=== PATIENT | female | born 1960 | race African-American/Black ===

== ENCOUNTER 2018-06-08 09:43 | Emergency (ER) | payer OTHER, SELFPAY ==
[2018-06-08 09:58] VITALS: BP 123/66
[2018-06-08] MEDS ORDERED: PROVENTIL IH ONE (10:17)
[2018-06-08] MEDS ORDERED: ATROVENT IH ONE (10:17)
--- NOTE | 2018-06-08 11:05 | XRay Report ---
FINAL REPORT EXAM: XR CHEST ROUTINE 2V HISTORY: shortness of breath TECHNIQUE: Frontal and lateral views of the chest. PRIORS: None currently available. FINDINGS: Cardiac silhouette is within normal limits. There is no effusion. There is no pneumothorax. There is no consolidation. There are no suspicious osseous lesions. IMPRESSION: No acute cardiopulmonary findings.
--- NOTE | 2018-06-08 11:46 | Emergency Department Report ---
ED Shortness of Breath HPI - General Chief Complaint: Dyspnea/Respdistress Stated Complaint: VINAYAK Time Seen by Provider: 06/08/18 10:12 Source: patient Mode of arrival: Ambulatory Limitations: No Limitations - History of Present Illness Initial Comments: Patient is a 57-year-old female who is presenting with shortness of breath. Patient has multiple medical problems which include fibromyalgia occasional vertigo she states she has depression and rheumatoid arthritis and migraines. Patient states she's had shortness of breath for approximately 9 days with a mild cough. Patient states cough is productive of white sputum. She denies any fevers chills nausea vomiting at this time. Patient states is no chest pain. Patient states she has to yawn to take a full deep breath. There is no pain with inspiration. - Related Data Home Medications Medication Instructions Recorded Confirmed Last Taken Cholecalciferol (Vitamin D3) 50,000 unit PO QWEEK 02/27/18 02/27/18 Unknown [Decara 50,000 unit] Hydroxychloroquine [Plaquenil] 200 mg PO DAILY 02/27/18 02/27/18 Unknown Ibuprofen [Ibu] 800 mg PO BID 02/27/18 02/27/18 Unknown Multivitamin/Iron/Folic Acid 1 each PO DAILY 02/27/18 02/27/18 Unknown [Centrum Adults Tablet] Potassium Chloride [Klor-Con 10] 10 meq PO DAILY 02/27/18 02/27/18 Unknown Topiramate [Topamax] 25 mg PO DAILY 02/27/18 02/27/18 Unknown amLODIPine [Norvasc] 5 mg PO DAILY 02/27/18 02/27/18 Unknown Previous Rx's Medication Instructions Recorded Last Taken Type Meclizine [Antivert] 25 mg PO TID PRN #20 tablet 02/27/18 Unknown Rx ALBUTEROL Inhaler (OR & NICU) 2 puff IH QID PRN #1 inhalation 06/08/18 Unknown Rx [ProAir HFA Inhaler] hydrOXYzine PAMOATE [Vistaril] 25 mg PO BID #15 capsule 06/08/18 Unknown Rx predniSONE [Deltasone] 10 mg PO QDAY #5 tab 06/08/18 Unknown Rx Allergies Allergy/AdvReac Type Severity Reaction Status Date / Time Penicillins Allergy Unknown Verified 06/08/18 09:57 ED Review of Systems ROS: Stated complaint: VINAYAK Other details as noted in HPI Comment: All other systems reviewed and negative ED Past Medical Hx - Past Medical History Previous Medical History?: Yes Hx Hypertension: Yes Hx Diabetes: Yes Hx Arthritis: Yes Hx Headaches / Migraines: Yes Additional medical history: depression, fibroimyalgia, HTN, bursistis, HLD, vertigo, hypokalemia - Surgical History Past Surgical History?: Yes Additional Surgical History: urethrea surgery - Social History Smoking Status: Never Smoker - Medications Home Medications: Home Medications Medication Instructions Recorded Confirmed Last Taken Type Cholecalciferol (Vitamin D3) 50,000 unit PO QWEEK 02/27/18 02/27/18 Unknown History [Decara 50,000 unit] Hydroxychloroquine [Plaquenil] 200 mg PO DAILY 02/27/18 02/27/18 Unknown History Ibuprofen [Ibu] 800 mg PO BID 02/27/18 02/27/18 Unknown History Meclizine [Antivert] 25 mg PO TID PRN #20 tablet 02/27/18 Unknown Rx Multivitamin/Iron/Folic Acid 1 each PO DAILY 02/27/18 02/27/18 Unknown History [Centrum Adults Tablet] Potassium Chloride [Klor-Con 10] 10 meq PO DAILY 02/27/18 02/27/18 Unknown History Topiramate [Topamax] 25 mg PO DAILY 02/27/18 02/27/18 Unknown History amLODIPine [Norvasc] 5 mg PO DAILY 02/27/18 02/27/18 Unknown History ALBUTEROL Inhaler (OR & NICU) 2 puff IH QID PRN #1 inhalation 06/08/18 Unknown Rx [ProAir HFA Inhaler] hydrOXYzine PAMOATE [Vistaril] 25 mg PO BID #15 capsule 06/08/18 Unknown Rx predniSONE [Deltasone] 10 mg PO QDAY #5 tab 06/08/18 Unknown Rx ED Physical Exam - General Limitations: No Limitations General appearance: alert, in no apparent distress - Head Head exam: Present: atraumatic, normocephalic - Eye Eye exam: Present: normal appearance - ENT ENT exam: Present: mucous membranes moist - Neck Neck exam: Present: normal inspection - Respiratory Respiratory exam: Present: normal lung sounds bilaterally, prolonged expiratory. Absent: respiratory distress, wheezes, rales, rhonchi - Cardiovascular Cardiovascular Exam: Present: regular rate, normal rhythm. Absent: systolic murmur, diastolic murmur, rubs, gallop - GI/Abdominal GI/Abdominal exam: Present: soft, normal bowel sounds. Absent: distended, tenderness, guarding, rebound, rigid - Extremities Exam Extremities exam: Present: normal inspection - Back Exam Back exam: Present: normal inspection - Neurological Exam Neurological exam: Present: alert, oriented X3 - Psychiatric Psychiatric exam: Present: normal affect, normal mood - Skin Skin exam: Present: warm, dry, intact, normal color. Absent: rash ED Course Vital Signs 06/08/18 06/08/18 06/08/18 09:53 10:25 10:52 Temperature 98.8 F Pulse Rate 83 Pulse Rate [ 88 90 Anterior Bilateral] Respiratory 20 Rate Respiratory 18 18 Rate [Anterior Bilateral] Blood Pressure 123/66 [Right] O2 Sat by Pulse 100 Oximetry ED Medical Decision Making - Radiology Data CXR WNL - Medical Decision Making Patient was given treatment for her prolonged expiratory phase which did improve after treatment. Patient continuing to complain of shortness of breath however her O2 sat is 100% lungs are clear. The patient likely with mild acute bronchitis. Patient also states she would like something for anxiety. I believe sciatic component is definitely a factor in the patient's symptoms today. Patient requesting a cardiac stress test because she is worried about her heart. Again patient is chest pain-free and has normal vital signs. Patient states she has a history of high blood pressure blood pressure is normal today. Patient be referred to cardiology for consultation as an outpatient. Critical care attestation.: If time is entered above; I have spent that time in minutes in the direct care of this critically ill patient, excluding procedure time. ED Disposition Clinical Impression: Anxiety Acute bronchitis Qualifiers: Bronchitis organism: unspecified organism Qualified Code(s): J20.9 - Acute bronchitis, unspecified Disposition: DC-01 TO HOME OR SELFCARE Is pt being admited?: No Does the pt Need Aspirin: No Condition: Stable Instructions: Acute Bronchitis (ED), Generalized Anxiety Disorder (ED) [facility]Primary Care Provider] - 3-5 Days ZEFERINO MATA MD [Staff Physician] - 3-5 Days Time of Disposition: 11:46
== END 2018-06-08 12:01 | disposition home or self-care (01) ==
LOC: ED 09:43
DX: J20.9 Acute bronchitis, unspecified (principal); F41.9 Anxiety disorder, unspecified; I10 Essential (primary) hypertension; E87.6 Hypokalemia; E11.9 Type 2 diabetes mellitus without complications; M19.90 Unspecified osteoarthritis, unspecified site; G43.909 Migraine, unspecified, not intractable, without status migrainosus; F32.9 Major depressive disorder, single episode, unspecified; Z88.0 Allergy status to penicillin
CPT/HCPCS: 71046; 94640

== ENCOUNTER 2018-06-15 07:49 | Emergency (ER) | payer OTHER, SELFPAY ==
[2018-06-15 07:58] VITALS: BP 122/72
--- NOTE | 2018-06-15 09:12 | XRay Report ---
PROCEDURE: XR CHEST ROUTINE 2V TECHNIQUE: PA and lateral chest radiographs were obtained. HISTORY: SOB, hx of [id number] COMPARISONS: 06/08/2018 exam is not available at the time of this dictation FINDINGS: No mediastinal shift. Cardiac silhouette is not enlarged. No pneumothorax, effusion, or focal pulmo nary opacity. No acute skeletal finding. IMPRESSION: No focal pulmonary opacity. This document is electronically signed by Milo Umanzor MD., June 15 2018 09:10:37 AM ET
--- NOTE | 2018-06-15 09:25 | Emergency Department Report ---
ED General Adult HPI - General Chief complaint: Dyspnea/Respdistress Stated complaint: SOB/COUGH Time Seen by Provider: 06/15/18 09:20 Source: patient Mode of arrival: Ambulatory Limitations: No Limitations - History of Present Illness Initial comments: Patient is 57-year-old female with history of hypertension and diabetes. Patient presented to the ER complaining of cough, productive with greenish sputum for the last 7 days. Patient denied any shortness of breath, nausea or vomiting. No chest pain. Severity scale (0 -10): 2 - Related Data Home Medications Medication Instructions Recorded Confirmed Last Taken Cholecalciferol (Vitamin D3) 50,000 unit PO QWEEK 02/27/18 02/27/18 Unknown [Decara 50,000 unit] Hydroxychloroquine [Plaquenil] 200 mg PO DAILY 02/27/18 02/27/18 Unknown Ibuprofen [Ibu] 800 mg PO BID 02/27/18 02/27/18 Unknown Multivitamin/Iron/Folic Acid 1 each PO DAILY 02/27/18 02/27/18 Unknown [Centrum Adults Tablet] Potassium Chloride [Klor-Con 10] 10 meq PO DAILY 02/27/18 02/27/18 Unknown Topiramate [Topamax] 25 mg PO DAILY 02/27/18 02/27/18 Unknown amLODIPine [Norvasc] 5 mg PO DAILY 02/27/18 02/27/18 Unknown Previous Rx's Medication Instructions Recorded Last Taken Type Meclizine [Antivert] 25 mg PO TID PRN #20 tablet 02/27/18 Unknown Rx ALBUTEROL Inhaler (OR & NICU) 2 puff IH QID PRN #1 inhalation 06/08/18 Unknown Rx [ProAir HFA Inhaler] hydrOXYzine PAMOATE [Vistaril] 25 mg PO BID #15 capsule 06/08/18 Unknown Rx predniSONE [Deltasone] 10 mg PO QDAY #5 tab 06/08/18 Unknown Rx Allergies Allergy/AdvReac Type Severity Reaction Status Date / Time Penicillins Allergy Unknown Verified 06/08/18 09:57 ED Review of Systems ROS: Stated complaint: SOB/COUGH Other details as noted in HPI Comment: All other systems reviewed and negative Constitutional: denies: chills, fever Respiratory: cough. denies: orthopnea, shortness of breath, SOB with exertion, SOB at rest, wheezing Cardiovascular: denies: chest pain, palpitations, dyspnea on exertion Gastrointestinal: denies: abdominal pain, nausea, vomiting, diarrhea, constipation, hematemesis, melena, hematochezia Musculoskeletal: denies: back pain Neurological: denies: headache, weakness ED Past Medical Hx - Past Medical History Previous Medical History?: Yes Hx Hypertension: Yes Hx Diabetes: Yes Hx Arthritis: Yes Hx Headaches / Migraines: Yes Additional medical history: depression, fibroimyalgia, HTN, bursistis, HLD, vertigo, hypokalemia - Surgical History Past Surgical History?: Yes Additional Surgical History: urethrea surgery - Social History Smoking Status: Never Smoker Substance Use Type: Prescribed - Medications Home Medications: Home Medications Medication Instructions Recorded Confirmed Last Taken Type Cholecalciferol (Vitamin D3) 50,000 unit PO QWEEK 02/27/18 02/27/18 Unknown History [Decara 50,000 unit] Hydroxychloroquine [Plaquenil] 200 mg PO DAILY 02/27/18 02/27/18 Unknown History Ibuprofen [Ibu] 800 mg PO BID 02/27/18 02/27/18 Unknown History Meclizine [Antivert] 25 mg PO TID PRN #20 tablet 02/27/18 Unknown Rx Multivitamin/Iron/Folic Acid 1 each PO DAILY 02/27/18 02/27/18 Unknown History [Centrum Adults Tablet] Potassium Chloride [Klor-Con 10] 10 meq PO DAILY 02/27/18 02/27/18 Unknown History Topiramate [Topamax] 25 mg PO DAILY 02/27/18 02/27/18 Unknown History amLODIPine [Norvasc] 5 mg PO DAILY 02/27/18 02/27/18 Unknown History ALBUTEROL Inhaler (OR & NICU) 2 puff IH QID PRN #1 inhalation 06/08/18 Unknown Rx [ProAir HFA Inhaler] hydrOXYzine PAMOATE [Vistaril] 25 mg PO BID #15 capsule 06/08/18 Unknown Rx predniSONE [Deltasone] 10 mg PO QDAY #5 tab 06/08/18 Unknown Rx ED Physical Exam - General Limitations: No Limitations General appearance: alert, in no apparent distress - Head Head exam: Present: atraumatic, normocephalic, normal inspection - Eye Eye exam: Present: normal appearance, PERRL - ENT ENT exam: Present: normal exam, normal orophraynx, mucous membranes moist - Neck Neck exam: Present: normal inspection, full ROM. Absent: tenderness, meningismus, lymphadenopathy, thyromegaly - Respiratory Respiratory exam: Present: normal lung sounds bilaterally. Absent: respiratory distress, wheezes, rales, rhonchi, stridor, chest wall tenderness, accessory muscle use, decreased breath sounds, prolonged expiratory - Cardiovascular Cardiovascular Exam: Present: regular rate, normal rhythm, normal heart sounds - GI/Abdominal GI/Abdominal exam: Present: soft, normal bowel sounds. Absent: distended, tenderness, guarding, rebound, rigid, hypoactive bowel sounds, organomegaly, mass, bruit, pulsatile mass, hernia - Extremities Exam Extremities exam: Present: normal inspection, full ROM, normal capillary refill. Absent: pedal edema, calf tenderness - Back Exam Back exam: Present: normal inspection, full ROM. Absent: tenderness, CVA tenderness (R), CVA tenderness (L), muscle spasm, paraspinal tenderness, vertebral tenderness - Neurological Exam Neurological exam: Present: alert, oriented X3, CN II-XII intact, normal gait - Psychiatric Psychiatric exam: Present: normal mood - Skin Skin exam: Present: warm, intact, normal color ED Course Vital Signs 06/15/18 07:56 Temperature 99.3 F Pulse Rate 104 H Respiratory 20 Rate Blood Pressure 122/72 O2 Sat by Pulse 100 Oximetry ED Medical Decision Making - Radiology Data Radiology results: report reviewed Referring Physician: ORALIA ELIAS Patient Name: ROX MAN Date of : 1960 Sex: Female Report Date: 2018-06-15 Report Status: Finalized Findings [facility] [address] [place] [address] XRay Report Signed Patient: ROX MAN MR#: [id number] : 1960 Acct:[id number] Age/Sex: 57 / F ADM Date: 06/15/18 Loc: ED Attending Dr: Ordering Physician: ORALIA ELIAS MD Date of Service: 06/15/18 Procedure(s): XR chest routine 2V Accession Number(s): [id number] cc: ORALIA ELIAS MD Fluoro Time In Minutes: PROCEDURE: XR CHEST ROUTINE 2V TECHNIQUE: PA and lateral chest radiographs were obtained. HISTORY: SOB, hx of [id number] COMPARISONS: 06/08/2018 exam is not available at the time of this dictation FINDINGS: No mediastinal shift. Cardiac silhouette is not enlarged. No pneumothorax, effusion, or focal pulmonary opacity. No acute skeletal finding. IMPRESSION: No focal pulmonary opacity. This document is electronically signed by Baron Temple MD., June 15 2018 09:10:37 AM ET Transcribed By: MB Dictated By: BARON TEMPLE MD Electronically Authenticated By: BARON TEMPLE MD Signed Date/Time: 06/15/18911 DD/ 4 TD/TT: 06/15/18844 Critical care attestation.: If time is entered above; I have spent that time in minutes in the direct care of this critically ill patient, excluding procedure time. ED Disposition Clinical Impression: Acute bronchitis Disposition: DC-01 TO HOME OR SELFCARE Is pt being admited?: No Condition: Stable Instructions: Acute Bronchitis (ED) Referrals: [facility] [Other] - 3-5 Days
== END 2018-06-15 09:30 | disposition home or self-care (01) ==
LOC: ED 07:49
DX: J20.9 Acute bronchitis, unspecified (principal); I10 Essential (primary) hypertension; E11.9 Type 2 diabetes mellitus without complications; M19.90 Unspecified osteoarthritis, unspecified site; G43.909 Migraine, unspecified, not intractable, without status migrainosus; F32.9 Major depressive disorder, single episode, unspecified; M79.7 Fibromyalgia; Z88.0 Allergy status to penicillin
CPT/HCPCS: 71046